=== PATIENT | male | born 1965 | race Caucasian/White ===

== ENCOUNTER 2016-08-14 07:02 | Day surgery (SDC) | payer BC ==
[2016-08-14] MEDS ORDERED: MEPERIDINE HCL/PF 100 MG/ML AMP ONE (08:09)
[2016-08-14] MEDS ORDERED: GLYCOPYRROLATE 0.2 MG/ML VIAL ONE (08:10)
[2016-08-14] MEDS ORDERED: MIDAZOLAM HCL 5 MG/5 ML VIAL ONE (08:10)
[2016-08-14] MEDS ORDERED: SIMETHICONE 40 MG/0.6 ML ML ONE (08:11)
[2016-08-14] MEDS: MIDAZOLAM HCL 5 MG/5 ML VIAL ONE ×3 (08:44→08:50)
[2016-08-14] MEDS ORDERED: EPINEPHrine 1 MG/ML AMP ONE (09:24)
[2016-08-14 11:01] VITALS: BP 115/77; PULSE 57; RESP 17
== END 2016-08-14 10:50 | disposition home or self-care (01) ==
LOC: SDS 07:02
PROVIDERS: ATTEND Colon & Rectal Surgery
DX: Z12.11 Encounter for screening for malignant neoplasm of colon (principal); D12.3 Benign neoplasm of transverse colon; D12.5 Benign neoplasm of sigmoid colon; I48.91 Unspecified atrial fibrillation
CPT/HCPCS: 45380; 45385; 88305; J0171; J2175; J2250; J3490; J7030; 45384

== ENCOUNTER 2017-12-17 06:38 | Day surgery (SDC) | payer BC ==
[~2017-12-17] VITALS: Ht 180.3 cm; Wt 99.8 kg
[2017-12-17] MEDS ORDERED: SIMETHICONE 40 MG/0.6 ML ML ONE (08:13)
[2017-12-17] MEDS ORDERED: MIDAZOLAM HCL 5 MG/5 ML VIAL ONE (08:14)
[2017-12-17] MEDS ORDERED: GLYCOPYRROLATE 0.2 MG/ML VIAL ONE (08:14)
[2017-12-17] MEDS ORDERED: MEPERIDINE HCL/PF 100 MG/ML AMP ONE (08:14)
[2017-12-17] MEDS: MIDAZOLAM HCL 5 MG/5 ML VIAL ONE ×3 (10:10→10:14)
[2017-12-17 12:02] VITALS: BP_SYST 116
== END 2017-12-17 11:10 | disposition home or self-care (01) ==
LOC: SDS 06:38 → SMU 06:55 → SDS 11:10
PROVIDERS: ATTEND Colon & Rectal Surgery
DX: Z09 Encounter for follow-up examination after completed treatment for conditions other than malignant neoplasm (principal); I48.91 Unspecified atrial fibrillation; Z80.0 Family history of malignant neoplasm of digestive organs; Z80.1 Family history of malignant neoplasm of trachea, bronchus and lung; Z79.01 Long term (current) use of anticoagulants; K63.89 Other specified diseases of intestine; Z86.010 Personal history of colon polyps; Z68.30 Body mass index [BMI] 30.0-30.9, adult; Z79.899 Other long term (current) drug therapy; I49.9 Cardiac arrhythmia, unspecified; Z98.890 Other specified postprocedural states
CPT/HCPCS: 45380; 88305; J2175; J2250; J7030; J3490

== ENCOUNTER 2023-04-07 10:17 | Inpatient (IN) | payer BC ==
[~2023-04-07] VITALS: Ht 180.3 cm; Wt 97.6 kg
[2023-04-07 10:30] VITALS: BP_SYST 140; PULSE 80; RESP 17; TEMP 98.2; O2SAT 99
[2023-04-07 11:02] LABS: BASOPHILS # (AUTO) 0.1 K/uL (0.0-0.2); BASOPHILS % (AUTO) 0.5 % (0.0-2.0); EOSINOPHILS % (AUTO) 0.1 % (0.0-4.0); HEMATOCRIT 44.2 % (36-54); HEMOGLOBIN 14.8 g/dL (14.0-18.0); LYMPHOCYTES # (AUTO) 0.4 K/uL (1.0-5.5); LYMPHOCYTES % (AUTO) 2.9 % (20.5-51.5); MEAN CORPUSCULAR HEMOGLOBIN 31 pg (27-31); MEAN CORPUSCULAR HGB CONC 34 % (32-36); MEAN CORPUSCULAR VOLUME 92 fL (79.0-98.0); MONOCYTES % (AUTO) 7.1 % (1.7-9.3); NEUTROPHILS # (AUTO) 13.2 K/uL (1.8-7.7); NEUTROPHILS % (AUTO) 89.4 % (40.0-70.0); PLATELET COUNT (AUTO) 184 K/uL (130-430); RED CELL DISTRIBUTION WIDTH 12.9 % (9.0-15.0); WHITE BLOOD COUNT (AUTO) 14.8 K/uL (4.8-10.8)
[2023-04-07] MEDS ORDERED: ONDANSETRON HCL 4 MG/2 ML VIAL IVP ONE ×2 (11:15→20:30)
[2023-04-07] MEDS ORDERED: MORPHINE 4 MG INJ. 4 MG/ML VIAL IVP ONE ×2 (11:15→20:30)
[2023-04-07 11:16] LABS: CALCIUM 9.7 mg/dL (8.4-11.0); CREATININE 1.01 mg/dL (0.55-1.30); POTASSIUM 4.1 mmol/L (3.5-5.1)
[2023-04-07 11:21] LABS: ALBUMIN 3.8 g/dL (3.4-4.8); TOTAL BILIRUBIN 1.3 mg/dL (0.0-1.0); TOTAL PROTEIN, SERUM 7.6 g/dL (6.4-8.3)
[2023-04-07 11:26] LABS: BILIRUBIN,URINE NEGATIVE (NEGATIVE); BLOOD, URINE NEGATIVE (NEGATIVE); CLARITY/URINE CLEAR (CLEAR); COLOR,URINE YELLOW (YELLOW); GLUCOSE,URINE NEGATIVE (NEGATIVE); KETONES,URINE 1+ (NEGATIVE); LEUKOCYTE ESTERASE ,URINE NEGATIVE (NEGATIVE); NITRITE, URINE NEGATIVE (NEGATIVE); PROTEIN URINE NEGATIVE (NEGATIVE)
[2023-04-07] MEDS ORDERED: PIPERACILLIN/TAZO 4.5 GM in NS 100 ML IV ONE (12:30)
[2023-04-07] MEDS ORDERED: PIPERACILLIN/TAZOBACTAM 4.5 GM/VIAL (ZOSYN) IV ONE (12:37)
[2023-04-07] MEDS ORDERED: FLEC100T2 PO (13:30)
[2023-04-07] MEDS: NACL 0.9% 1,000 ML IV SCH ×2 (14:03→23:15)
[2023-04-07] MEDS ORDERED: ACETAMINOPHEN 500 MG TABLET PO ONE (15:00)
[2023-04-07] MEDS: KETOROLAC TROMETHAMINE 10 MG TABLET (TORADOL) PO PRN ×2 (17:47→23:30)
[2023-04-07 22:58] VITALS: BP_SYST 117; PULSE 78; RESP 18; TEMP 99.6
[2023-04-08 01:52] VITALS: BP_SYST 119; PULSE 74; RESP 18; TEMP 99.1
[2023-04-08] MEDS ORDERED: MORPHINE 2 MG/ML INJ. SYRINGE IVP ONE (06:15)
[2023-04-08 08:00] VITALS: BP_SYST 156; PULSE 74; RESP 18; TEMP 98.9
[2023-04-08] MEDS ORDERED: NALOXONE HCL 0.4 MG/ML AMP (NARCAN) IVP PRN (08:15)
[2023-04-08] MEDS ORDERED: MORPHINE 2 MG/ML INJ. SYRINGE IVP PRN (08:15)
[2023-04-08] MEDS: KETOROLAC TROMETHAMINE 10 MG TABLET (TORADOL) PO PRN (08:19)
[2023-04-08] MEDS ORDERED: PIPERACILLIN/TAZO 3.375/DEX-IS 50 ML IV SCH (09:00)
[2023-04-08] MEDS: NACL 0.9% 1,000 ML IV SCH (09:16)
[2023-04-08 11:45] VITALS: BP_SYST 142; PULSE 71; RESP 18; TEMP 97.5; O2SAT 99
[2023-04-08] MEDS ORDERED: HYDR-3927 PO (13:08)
[2023-04-08] MEDS ORDERED: HYDROcodone/ACETAMIN 5-325 MG TAB (NORCO/ VICODIN) PO PRN (13:15)
== END 2023-04-08 13:30 | disposition home or self-care (01) | DRG 373 ==
LOC: SED 10:17 → SMU 13:14
PROVIDERS: ADMIT Family Medicine; ATTEND Family Medicine
DX: K65.1 Peritoneal abscess (principal); M54.9 Dorsalgia, unspecified; I48.91 Unspecified atrial fibrillation; Z79.01 Long term (current) use of anticoagulants; Z79.899 Other long term (current) drug therapy
CPT/HCPCS: 36415; 76376; 80053; 81001; 81003; 83690; 85025; 87040; 96365; 96375; 96379; 99285; J2270; J2405; J2543